=== PATIENT | female | born 1955 | race Caucasian/White ===

== ENCOUNTER 2019-10-30 07:37 | Outpatient (CLI) | payer OTHER, SELFPAY ==
[2019-10-30 08:09] LABS: Blood Urea Nitrogen 11 mg/dL (7-17); Calcium 9.5 mg/dL (8.4-10.2); Carbon Dioxide 28 mmol/L (22-30); Chloride 106 mmol/L (98-107); Cholesterol 179 mg/dL (0-200); Estimated Glomerular Filt Rate > 60; Glucose 108 mg/dL (65-105); HDL Direct 56 mg/dL; Potassium 4.4 mmol/L (3.4-5.0); Sodium 139 mmol/L (137-145); Triglycerides 106 mg/dL (<150)
[2019-10-30 08:20] LABS: LDL Cholesterol Direct 89 mg/dL
[2019-10-30 08:54] LABS: Vitamin D 25 Hydroxy 33.1 ng/mL
== END 2019-10-30 07:38 | disposition home or self-care (01) ==
PROVIDERS: PCP Internal Medicine; Visit Provider Internal Medicine
DX: E55.9 Vitamin D deficiency, unspecified (principal); E66.9 Obesity, unspecified
CPT/HCPCS: 36415; 80048; 80061; 82306

== ENCOUNTER 2020-04-25 12:37 | Outpatient (CLI) | payer OTHER, SELFPAY ==
[2020-04-25 13:31] LABS: Basophils Percent Auto 0.2 % (0.2-1.2); Eosinophils Absolute Auto 0.1 K/mm3 (0-0.3); Eosinophils Percent Auto 0.8 % (0-4.4); Hematocrit 42.2 % (37.0-47.0); Immature Granulocyte Absolute 0.02 K/mm3 (0.00-0.031); Immature Granulocyte Percent A 0.3 % (0-0.5); Lymphocytes Absolute Auto 2.76 K/mm3 (0.9-3.2); Lymphocytes Percent Auto 44.2 % (18.3-44.2); Mean Corpuscular HGB Conc 33.2 g/dl (32-36); Mean Corpuscular Volume 93.6 fl (80-100); Mean Platelet Volume 9.3 fl (7.4-10.4); Monocytes Absolute Auto 0.5 K/mm3 (0.1-0.6); Monocytes Percent Auto 7.4 % (2.6-8.5); Neutrophils Absolute Auto 2.9 K/mm3 (1.3-6.7); Neutrophils Percent Auto 47.1 % (45.5-73.1); Platelet Count Result 275 k/mm3 (150-375); Red Blood Count 4.51 M/mm3 (4.2-5.4); Red Cell Distribution Width 11.9 % (11.5-14.5); White Blood Count 6.2 K/mm3 (4.5-10.0)
[2020-04-25 13:38] LABS: Add Urine Microscopic? YES; Appearance Urine Clear (Clear); Bacteria Urine Trace /hpf; Bilirubin Urine Negative (Negative); Blood Urine Negative (Negative); Color Urine Yellow (Yellow); Glucose Urine UA Negative (Negative); Ketones Urine Negative (Negative); Leukocyte Esterase Ur Trace LEU/UL (NEGATIVE); Mucus Urine Rare /lpf; Nitrate Urine Negative (Negative); Protein Urine Negative (Negative); Specific Grav Ur 1.014 (1.001-1.035); Squamous Epithelial Cell Urine Few /hpf (Few); Urobilinogen Urine Negative mg/dL (<2.0); WBC Urine 0-3 /hpf (0-3)
[2020-04-25 13:41] LABS: Alanine Aminotransferase 22 U/L (4-35); Albumin Level 4.5 g/dL (3.5-5.1); Alkaline Phosphatase 76 U/L (38-126); Anion Gap 7 mmol/L (8-16); Aspartate Amino Transferase 29 U/L (14-36); Bilirubin,Total 0.6 mg/dL (0.2-1.3); Blood Urea Nitrogen 12 mg/dL (7-17); Calcium 10.8 mg/dL (8.4-10.2); Carbon Dioxide 30 mmol/L (22-30); Chloride 102 mmol/L (98-107); Cholesterol 261 mg/dL (0-200); Estimated Glomerular Filt Rate > 60; Glucose 100 mg/dL (65-105); HDL Direct 62 mg/dL; Potassium 4.5 mmol/L (3.4-5.0); Sodium 139 mmol/L (137-145); Triglycerides 252 mg/dL (<150)
[2020-04-25 13:51] LABS: LDL Cholesterol Direct 155 mg/dL
[2020-04-25 14:08] LABS: Hemoglobin A1C 5.2 % (<5.7)
[2020-04-28 12:16] LABS: Homocysteine 9.3 umol/L (<10.4)
== END 2020-04-25 12:38 | disposition home or self-care (01) ==
PROVIDERS: PCP Internal Medicine; Visit Provider Internal Medicine
DX: E55.9 Vitamin D deficiency, unspecified (principal); Z79.899 Other long term (current) drug therapy; G47.33 Obstructive sleep apnea (adult) (pediatric); M15.0 Primary generalized (osteo)arthritis
CPT/HCPCS: 36415; 80053; 80061; 81001; 83036; 83090; 85025

== ENCOUNTER 2020-05-02 08:17 | Outpatient (CLI) | payer OTHER, SELFPAY ==
[2020-05-02 08:56] LABS: Cholesterol 218 mg/dL (0-200); HDL Direct 66 mg/dL; Triglycerides 110 mg/dL (<150)
[2020-05-02 09:06] LABS: Add Urine Microscopic? YES; Amorphous Sediment Urine Few; Appearance Urine Cloudy (Clear); Bacteria Urine 1+ /hpf; Bilirubin Urine Negative (Negative); Blood Urine Negative (Negative); Color Urine Yellow (Yellow); Glucose Urine UA Negative (Negative); Ketones Urine Negative (Negative); Leukocyte Esterase Ur Trace LEU/UL (NEGATIVE); Mucus Urine Rare /lpf; Nitrate Urine Negative (Negative); Protein Urine Negative (Negative); Specific Grav Ur 1.021 (1.001-1.035); Squamous Epithelial Cell Urine Many /hpf (Few); Urobilinogen Urine Negative mg/dL (<2.0); WBC Urine 21-30 /hpf (0-3)
[2020-05-02 09:07] LABS: LDL Cholesterol Direct 123 mg/dL
[2020-05-05 06:08] LABS: Vitamin D 1,25 (OH)2 Total 53 pg/mL (18-72); Vitamin D2 1,25 (OH)2 <8 pg/mL; Vitamin D3 1,25 (OH)2 53 pg/mL
[2020-05-05 13:06] LABS: Ionized Calcium 5.2 mg/dL (4.8-5.6)
== END 2020-05-02 08:18 | disposition home or self-care (01) ==
PROVIDERS: PCP Internal Medicine; Visit Provider Internal Medicine
DX: E83.52 Hypercalcemia (principal); E78.5 Hyperlipidemia, unspecified; R31.9 Hematuria, unspecified
CPT/HCPCS: 36415; 80061; 81001; 82330; 82652; 83519

== ENCOUNTER 2020-10-25 10:58 | Outpatient (CLI) | payer OTHER, SELFPAY ==
--- NOTE | ~2020-10-25 | XR_ITS ---
XR hip RT 2V w AP pelvis 10/25/2020 11:22 Indication: Pelvic and perineal pain Procedure: AP pelvis and 2 views right hip Comparison: No prior studies for comparison. Findings: There is moderate lower lumbar spondylosis. Sacral foramen are symmetric. Pelvic rings are intact. No significant soft tissue abnormality. No foreign body. Impression: 1: No acute bone or joint abnormality. 2: Moderate lower lumbar spondylosis. Reviewed, dictated and finalized at location B. Impression: 1: No acute bone or joint abnormality. 2: Moderate lower lumbar spondylosis.
--- NOTE | ~2020-10-25 | XR_ITS ---
EXAMINATION: XR lumbar spine 2-3V DATE: 10/25/2020 11:22 INDICATION: Pelvic and perineal pain. TECHNIQUE: 3 views of lumbar spine were obtained. COMPARISON: Lumbar spine MRI 05/15/2013 FINDINGS: There is 10 degrees dextroscoliosis of lumbar spine. Vertebral body heights are normal. The re is moderately decreased disc height at L3-L4 and L5-S1 and severely decreased disc height at L4-L5 . There are endplate osteophytes at all levels. There is severe facet joint osteoarthritis in lower l umbar spine. Surgical clips in the right upper quadrant are likely from cholecystectomy. IMPRESSION: 1. Severe lumbar spondylosis. 2. Lumbar dextroscoliosis. Reviewed, dictated and finalized at location A.
== END 2020-10-25 10:59 | disposition home or self-care (01) ==
LOC: ANHIMG 11:02
PROVIDERS: PCP Internal Medicine; Visit Provider Internal Medicine
DX: R10.2 Pelvic and perineal pain (principal); R10.31 Right lower quadrant pain; M47.896 Other spondylosis, lumbar region
CPT/HCPCS: 72100; 73502

== ENCOUNTER 2020-11-08 13:36 | Outpatient (CLI) | payer OTHER, SELFPAY ==
--- NOTE | ~2020-11-08 | US_ITS ---
EXAMINATION: US pelvic complete w TV DATE: 11/08/2020 14:27 INDICATION: Right pelvic pain Comparison:No prior studies for comparison. TECHNIQUE: Multiple transabdominal and endovaginal sonographic images of the pelvis performed. FINDINGS: The uterus measures 4.9 x 2 x 2.8 cm. There are nabothian cysts. The endometrial complex me asures 2 mm. The ovaries are not visualized. No adnexal masses or fluid collections. There is no free fluid in the pelvis. There are no abnormal masses seen on either side. IMPRESSION: 1. Unremarkable pelvic ultrasound. Reviewed, dictated and finalized at location B.
== END 2020-11-08 13:37 | disposition home or self-care (01) ==
PROVIDERS: PCP Internal Medicine; Visit Provider Internal Medicine
DX: R10.2 Pelvic and perineal pain (principal)
CPT/HCPCS: 76830; 76856

== ENCOUNTER 2021-02-07 10:47 | Outpatient (CLI) | payer OTHER, SELFPAY ==
--- NOTE | ~2021-02-07 | XR_ITS ---
EXAMINATION: XR barium swallow modified DATE: 02/07/2021 11:35 INDICATION: Dysphagia, unspecified. TECHNIQUE: The patient was given barium-containing material of multiple consistencies to swallow by t cony speech pathologist while I performed fluoroscopy. Fluoroscopy exposure time was 1.3 minutes. The n umber of fluoroscopy images saved to the PACS was 1. Dose-area product was 1.325 Gy-cm^2. FINDINGS: There was no laryngeal penetration or aspiration. IMPRESSION: 1. No laryngeal penetration or aspiration. 2. Please refer to the speech therapy report for recommendations. Reviewed, dictated and finalized at location A.
--- NOTE | 2021-02-07 11:45 | STOPEVAL ---
MODIFIED BARIUM SWALLOW EVALUATION: Thank you for referring Jasmine Michaud to [facility].? Attending Provider: Hank Francisco MD Outpatient Past Medical History Past Medical History Source of Past Medical History Patient Evaluation Information Problem Diagnosis choking Prior Level of Function Prior Swallow Level Prior Intake Method Oral Prior Diet Regular (Level 7 Diet) Prior Liquid Consistency Thin (Level 0 Diet) Comments Additional Prior Level of Function Pt denies CVA, pneumonia, Comments throat surgery, esophageal dilatation, or GERD Modified Barium Swallow Evaluation Recent Swallowing History Reports Dysphagia Yes: choking a few times a week on anything even saliva Onset of Dysphagia 2020 it starting worsening History of Dysphagia No Other Factors Impacting Dysphagia None History of Pneumonia No Intake Method Prior to Swallow Oral Evaluation Diet Prior to Swallow Evaluation Regular, Level 7 Liquid Consistency Prior to Swallow Thin (0) Evaluation Consistency Solid Consistency Method of Presentation Spoon Oral Preparatory Symptoms None Oral Phase Symptoms None Pharyngeal Phase Symptoms None Severity of Vallecular Residue None - 0% No Residue Severity of Pyriform Sinus Residue None - 0% No Residue 8 Point Laryngeal Penetration-Aspiration Material Does Not Enter Airway Scale Cervical/Esophageal Symptoms None Mixed Consistency Method of Presentation Spoon Oral Preparatory Symptoms None Oral Phase Symptoms None Pharyngeal Phase Symptoms None Severity of Vallecular Residue None - 0% No Residue Severity of Pyriform Sinus Residue None - 0% No Residue 8 Point Laryngeal Penetration-Aspiration Material Does Not Enter Airway Scale Cervical/Esophageal Symptoms None Pureed Consistency Method of Presentation Spoon Oral Preparatory Symptoms None Oral Phase Symptoms None Pharyngeal Phase Symptoms None Severity of Vallecular Residue None - 0% No Residue Severity of Pyriform Sinus Residue None - 0% No Residue 8 Point Laryngeal Penetration-Aspiration Material Does Not Enter Airway Scale Cervical/Esophageal Symptoms None Thin Uncontrolled 2 Method of Presentation Straw Oral Preparatory Symptoms None Oral Phase Symptoms None Pharyngeal Phase Symptoms None Severity of Vallecular Residue None - 0% No Residue Severity of Pyriform Sinus Residue None - 0% No Residue 8 Point Laryngeal Penetration-Aspiration Material Does Not Enter Airway Scale Cervical/Esophageal Symptoms None Thin
== END 2021-02-07 10:48 | disposition home or self-care (01) ==
LOC: ANHIMG 10:50
PROVIDERS: PCP Internal Medicine; Visit Provider Internal Medicine
DX: R13.10 Dysphagia, unspecified (principal)
CPT/HCPCS: 92611

== ENCOUNTER 2021-03-28 18:00 | Outpatient (CLI) | payer OTHER, SELFPAY ==
--- NOTE | ~2021-03-28 | XR_ITS ---
XR chest 2V 03/28/2021 18:21 Indication: Dry cough for 4 months Procedure: 2 view chest Comparison: 09/21/2016 Findings: There are linear left basilar infiltrates, most likely atelectasis/scarring. There are chol ecystectomy clips. There is scoliosis. No significant effusion or pneumothorax. Mild thoracic spondyl osis. No acute osseous abnormality. Impression: 1: Linear left basilar infiltrates, most likely atelectasis/scarring. Reviewed, dictated and finalized at location A. L WAXER Impression: 1: Linear left basilar infiltrates, most likely atelectasis/scarring.
== END 2021-03-28 18:01 | disposition home or self-care (01) ==
LOC: ANHIMG 18:06
PROVIDERS: PCP Internal Medicine; Visit Provider Internal Medicine
DX: R05.9 Cough, unspecified (principal); R91.8 Other nonspecific abnormal finding of lung field
CPT/HCPCS: 71046

== ENCOUNTER → 2021-03-29 08:46 | Outpatient (CLI) | payer OTHER, SELFPAY ==
[2021-03-29 11:12] LABS: Influenza Control Positive
[2021-03-29 18:11] LABS: SARS-CoV-2 RNA PCR Negative
== END ==
PROVIDERS: PCP Internal Medicine; Visit Provider Internal Medicine
DX: R68.89 Other general symptoms and signs (principal); Z20.822 Contact with and (suspected) exposure to COVID-19
CPT/HCPCS: 87804; C9803; U0003; U0005

== ENCOUNTER 2021-04-05 06:55 | Outpatient (CLI) | payer OTHER, SELFPAY ==
--- NOTE | ~2021-04-05 | CT_ITS ---
EXAMINATION: CT diagnostic chest w con EXAM DATE: 04/05/2021 07:27 INDICATION: Shortness of breath. TECHNIQUE: Spiral CT of the chest following intravenous injection of 75 mL Omnipaque 350. Axial, cor onal and sagittal images of the chest were reviewed. Coronal maximum intensity pixel images of chest reviewed. The dose-length product (DLP) for this examination was 337.23 mGy-cm. The exposure was t ailored according to patient size (auto mA exposure control), and iterative reconstruction (ASIR) was used as additional dose reduction technique. There is no prior study for comparison. FINDINGS: There are cholecystectomy clips. Small amount of right lower lobe posterior segmental endo bronchial debris, associated subsegmental atelectasis. The lungs are otherwise clear. There are no pleural or pericardial effusions. Tracheobronchial tree is patent. There is no mediastinal, hilar or axillary lymphadenopathy. There is no pneumothorax. Heart normal in size. There is mild cor onary arterial calcification, arterial sclerosis. Upper abdomen is unremarkable. There is mild tho racic spondylosis without osteoblastic or osteolytic lesions identified. IMPRESSION: Small right lower lobe subsegmental endobronchial debris, atelectasis. Reviewed, dictated and finalized at location B. LIEUTENANT IMPRESSION: Small right lower lobe subsegmental endobronchial debris, atelectas is.
[2021-04-05 07:23] LABS: Estimated Glomerular Filt Rate > 60
== END 2021-04-05 06:56 | disposition home or self-care (01) ==
LOC: ANHIMG 07:02
PROVIDERS: PCP Internal Medicine; Visit Provider Internal Medicine
DX: R05.9 Cough, unspecified (principal); R06.02 Shortness of breath; R91.8 Other nonspecific abnormal finding of lung field
CPT/HCPCS: 71260; Q9967

== ENCOUNTER 2021-04-17 07:58 | Outpatient (CLI) | payer OTHER, SELFPAY ==
--- NOTE | 2021-04-18 08:36 | WPDPFTINT ---
PFT Procedure Performed PFT Procedure Performed Spirometry with Pre/Post Bronchodilator Plethysmography (Lung Vol) Diffusing Cap (DLCO) Flow Vol Loop PFT Interpretation Lung volumes were measured with the body plethysmography method. Lung volumes are unremarkable. Spirometry showed normal expiratory flow rates and a normal FEV1 to FVC ratio of 87%. Following administration of a bronchodilator there was no significant change in the expiratory flow rates. Lung diffusion capacity is borderline normal at 78% predicted. The flow volume loop is unremarkable. Impression: Spirometry, lung volumes, and lung diffusion capacity all within the normal range.
== END 2021-04-17 07:59 | disposition home or self-care (01) ==
PROVIDERS: PCP Internal Medicine; Visit Provider Internal Medicine
DX: R05.9 Cough, unspecified (principal)
CPT/HCPCS: 94060; 94726; 94729

== ENCOUNTER 2021-05-01 07:42 | Outpatient (CLI) | payer OTHER, SELFPAY ==
[2021-05-01 08:09] LABS: Alanine Aminotransferase 16 U/L (4-35); Albumin Level 4.6 g/dL (3.5-5.1); Alkaline Phosphatase 81 U/L (38-126); Anion Gap 10 mmol/L (8-16); Aspartate Amino Transferase 24 U/L (14-36); Bilirubin,Total 0.8 mg/dL (0.2-1.3); Blood Urea Nitrogen 13 mg/dL (7-17); Calcium 9.7 mg/dL (8.4-10.2); Carbon Dioxide 22 mmol/L (22-30); Chloride 105 mmol/L (98-107); Cholesterol 169 mg/dL (0-200); Estimated Glomerular Filt Rate > 60; Glucose 128 mg/dL (65-110); HDL Direct 84 mg/dL; Potassium 3.9 mmol/L (3.4-5.0); Sodium 137 mmol/L (137-145); Triglycerides 110 mg/dL (<150)
[2021-05-01 08:12] LABS: Hemoglobin A1C 5.2 % (<5.7)
[2021-05-01 08:20] LABS: LDL Cholesterol Direct 59 mg/dL
[2021-05-01 08:35] LABS: Free T4 Free Thyroxine 1.18 ng/mL (0.78-2.19); Vitamin D 25 Hydroxy 41.8 ng/mL
== END 2021-05-01 07:43 | disposition home or self-care (01) ==
PROVIDERS: PCP Internal Medicine; Visit Provider Internal Medicine
DX: Z00.00 Encounter for general adult medical examination without abnormal findings (principal); E78.5 Hyperlipidemia, unspecified; R73.01 Impaired fasting glucose; Z79.899 Other long term (current) drug therapy
CPT/HCPCS: 36415; 80053; 80061; 82306; 83036; 84439; 84443

== ENCOUNTER 2021-09-05 13:25 | Outpatient (CLI) | payer OTHER, SELFPAY ==
[2021-09-05 15:28] LABS: Alanine Aminotransferase 17 U/L (4-35); Albumin Level 4.4 g/dL (3.5-5.1); Alkaline Phosphatase 67 U/L (38-126); Anion Gap 8 mmol/L (8-16); Aspartate Amino Transferase 26 U/L (14-36); Bilirubin,Total 0.7 mg/dL (0.2-1.3); Blood Urea Nitrogen 10 mg/dL (7-17); Calcium 9.3 mg/dL (8.4-10.2); Carbon Dioxide 29 mmol/L (22-30); Chloride 104 mmol/L (98-107); Cholesterol 213 mg/dL (0-200); Estimated Glomerular Filt Rate > 60; Glucose 134 mg/dL (65-110); HDL Direct 65 mg/dL; Potassium 3.5 mmol/L (3.4-5.0); Sodium 141 mmol/L (137-145); Triglycerides 156 mg/dL (<150)
[2021-09-05 15:39] LABS: LDL Cholesterol Direct 100 mg/dL
[2021-09-05 17:27] LABS: Hemoglobin A1C 5.2 % (<5.7)
== END 2021-09-05 13:26 | disposition home or self-care (01) ==
LOC: ANHLAB 13:27
PROVIDERS: PCP Internal Medicine; Visit Provider Internal Medicine
DX: E78.2 Mixed hyperlipidemia (principal); Z79.899 Other long term (current) drug therapy; R73.01 Impaired fasting glucose
CPT/HCPCS: 36415; 80053; 80061; 83036

== ENCOUNTER 2021-09-12 16:41 | Outpatient (CLI) | payer OTHER, SELFPAY ==
--- NOTE | ~2021-09-12 | DEXA_ITS ---
Bone Density Report Name: TALON JAIME Age: 66 Sex: Female Ethnicity: White Date of : 1955 Indication: postmenopausal; screening for osteoporosis; height loss; Referring Provider: NOÉ CRESPO Study: Bone densitometry was performed. Exam Date: September 12, 2021 Accession number: [id number] Bone Density: Region BMD T-score Z-score Classification AP Spine(L1-L4) 1.075 0.3 2.0 Normal Femoral Neck (Left) 0.679 -1.5 0.0 Osteopenia Total Hip (Left) 0.809 -1.1 0.1 Osteopenia Femoral Neck (Right) 0.689 -1.4 0.0 Osteopenia Total Hip (Right) 0.779 -1.3 -0.1 Osteopenia Total Hip Mean 0.794 -1.2 0.0 Osteopenia World Health Organization criteria for BMD impression classify patients as: Normal (T-score at or above -1.0), Osteopenia (T-score between -1.0 and -2.5), or Osteoporosis (T-score at or below -2.5). 10-year Fracture Risk(1): Major Osteoporotic Fracture 8.0% Hip Fracture 0.8% Reported Risk Factors: [place] (), Neck BMD=0.679, BMI=37.8 (1) FRAX(R) Version 3.08. Fracture probability calculated for an untreated patient. Fracture probability may be lower if the patient has received treatment. Previous Exams: Region Exam Age BMD T-score BMD Change BMD Change Date g/cm2 vs Baseline vs Previous AP Spine (L1-L4) 09/12/2021 66 1.075 0.3 -0.035 (-3.1%) -0.035 (-3.1%) 06/09/2018 63 1.110 0.6 Total Hip(Left) 09/12/2021 66 0.809 -1.1 -0.057 (-6.6%) -0.057 (-6.6%) 06/09/2018 63 0.866 -0.6 Total Hip(Right) 09/12/2021 66 0.779 -1.3 -0.043 (-5.2%) -0.043 (-5.2%) 06/09/2018 63 0.822 -1.0 *Denotes significance at 95% confidence level, LSC for AP Spine = 0.022 g/cm2, LSC for Total Hip = 0.027 g/cm2 Clinical Information Provided by Patient: Has used the following medications: Vitamin D, Calcium Patient maximum height was 65 Menopause Age: 57 Drinks caffeinated beverages Onset of menses at age 16 Number of children 0 Impression: The patient has low bone mass, based on the Left Femoral Neck T-score. The patient has an estimated ten-year risk of hip fracture of 0.8% and an estimated ten-year risk of major fracture of 8%, based on the WHO FRAX algorithm. The BMD for the AP Spine (L1-L4) decreased, changing by -3.1% since the last DXA exam. The BMD for the Total Hip(Left) decreased, changing by -6.6% since the last DXA exam. The BMD for the Total Hip(Right) decreased, changing by -5.2% since the last
== END 2021-09-12 16:42 | disposition home or self-care (01) ==
LOC: ANHIMG 16:42
PROVIDERS: PCP Internal Medicine; Visit Provider Internal Medicine
DX: Z78.0 Asymptomatic menopausal state (principal); M85.852 Other specified disorders of bone density and structure, left thigh; M85.851 Other specified disorders of bone density and structure, right thigh
CPT/HCPCS: 77080

== ENCOUNTER → 2021-09-19 00:24 | Outpatient (CLI) | payer OTHER, SELFPAY ==
[2021-09-19 13:04] LABS: SARS-CoV-2 RNA PCR Negative
== END ==
PROVIDERS: PCP Internal Medicine; Visit Provider Internal Medicine
DX: R05.9 Cough, unspecified (principal); Z20.822 Contact with and (suspected) exposure to COVID-19
CPT/HCPCS: C9803; U0003; U0005

== ENCOUNTER 2022-01-12 17:24 | Outpatient (CLI) | payer OTHER, SELFPAY ==
[2022-01-12 18:27] LABS: Hemoglobin A1C 5.3 % (<5.7)
[2022-01-12 18:39] LABS: Alanine Aminotransferase 17 U/L (6-35); Albumin Level 4.4 g/dL (3.5-5.1); Alkaline Phosphatase 89 U/L (38-126); Anion Gap 6 mmol/L (8-16); Aspartate Amino Transferase 30 U/L (14-36); Bilirubin,Total 0.4 mg/dL (0.2-1.3); Blood Urea Nitrogen 13 mg/dL (7-17); Calcium 9.2 mg/dL (8.4-10.2); Carbon Dioxide 29 mmol/L (22-30); Chloride 100 mmol/L (98-107); Cholesterol 212 mg/dL (0-200); Estimated Glomerular Filt Rate > 60; Glucose 103 mg/dL (65-110); HDL Direct 68 mg/dL; Sodium 135 mmol/L (137-145); Triglycerides 222 mg/dL (<150)
[2022-01-12 18:50] LABS: LDL Cholesterol Direct 101 mg/dL
[2022-01-12 19:08] LABS: Vitamin D 25 Hydroxy 33.1 ng/mL
== END 2022-01-12 17:25 | disposition home or self-care (01) ==
LOC: ANHLAB 17:25
PROVIDERS: PCP Internal Medicine; Visit Provider Internal Medicine
DX: E78.2 Mixed hyperlipidemia (principal); Z79.899 Other long term (current) drug therapy; R73.01 Impaired fasting glucose; E55.9 Vitamin D deficiency, unspecified
CPT/HCPCS: 36415; 80053; 80061; 82306; 83036

== ENCOUNTER 2022-01-15 11:16 | Outpatient (CLI) | payer OTHER, SELFPAY ==
--- NOTE | ~2022-01-15 | XR_ITS ---
XR_[id number]_CR DATE: 01/15/2022 11:43 INDICATION: Dorsal foot pain TECHNIQUE: 4 weightbearing views COMPARISON: None FINDINGS: Prominent plantar calcaneal enthesopathy without associated erosive change or periostitis. Slight posterior calcaneal enthesopathy. Mild osteoarthritis at the first metatarsophalangeal joint. No fracture or dislocation, periosteal reaction or bone destruction is detected. IMPRESSION: Calcaneal enthesopathy Mild osteoarthritis at first metatarsophalangeal joint Reviewed, dictated and finalized at Location A. Reviewed, dictated and finalized at location B.
== END 2022-01-15 11:17 | disposition home or self-care (01) ==
LOC: ANHIMG 11:18
PROVIDERS: PCP Internal Medicine; Visit Provider Internal Medicine
DX: M77.32 Calcaneal spur, left foot (principal); M19.072 Primary osteoarthritis, left ankle and foot
CPT/HCPCS: 73630

== ENCOUNTER 2023-02-12 14:30 | Outpatient (CLI) | payer MEDICARE, SELFPAY ==
[2023-02-12 15:16] LABS: Basophils Percent Auto 0.4 % (0.2-1.2); Eosinophils Absolute Auto 0.1 K/mm3 (0-0.3); Eosinophils Percent Auto 1.1 % (0-4.4); Hematocrit 41.2 % (37.0-47.0); Hemoglobin 13.6 g/dL (12.0-15.0); Immature Granulocyte Absolute 0.02 K/mm3 (0.00-0.031); Immature Granulocyte Percent A 0.3 % (0-0.5); Lymphocytes Absolute Auto 2.59 K/mm3 (0.9-3.2); Lymphocytes Percent Auto 35.3 % (18.3-44.2); Mean Corpuscular Hemoglobin 30.8 pg (26-34); Mean Corpuscular Volume 93.4 fl (80-100); Mean Platelet Volume 9.7 fl (7.4-10.4); Monocytes Absolute Auto 0.6 K/mm3 (0.1-0.6); Monocytes Percent Auto 7.8 % (2.6-8.5); Neutrophils Percent Auto 55.1 % (45.5-73.1); Platelet Count Result 294 k/mm3 (150-375); Red Blood Count 4.41 M/mm3 (4.2-5.4); Red Cell Distribution Width 12.3 % (11.5-14.5); White Blood Count 7.3 K/mm3 (4.5-10.0)
[2023-02-12 15:26] LABS: Alanine Aminotransferase 20 U/L (6-35); Albumin Level 4.7 g/dL (3.5-5.1); Alkaline Phosphatase 77 U/L (38-126); Anion Gap 8 mmol/L (8-16); Aspartate Amino Transferase 31 U/L (14-36); Bilirubin,Total 0.7 mg/dL (0.2-1.3); Blood Urea Nitrogen 11 mg/dL (7-17); Calcium 10.2 mg/dL (8.4-10.2); Carbon Dioxide 28 mmol/L (22-30); Chloride 99 mmol/L (98-107); Cholesterol 190 mg/dL (0-200); Estimated Glomerular Filt Rate > 60; Glucose 96 mg/dL (65-110); HDL Direct 71 mg/dL; Potassium 4.1 mmol/L (3.4-5.0); Sodium 135 mmol/L (137-145); Triglycerides 159 mg/dL (<150)
[2023-02-12 15:27] LABS: Hemoglobin A1C 5.4 % (<5.7)
[2023-02-12 15:37] LABS: LDL Cholesterol Direct 82 mg/dL
[2023-02-12 16:57] LABS: Free T4 Free Thyroxine 1.29 ng/mL (0.78-2.19); Vitamin D 25 Hydroxy 42.2 ng/mL
== END 2023-02-12 14:31 | disposition home or self-care (01) ==
PROVIDERS: PCP Internal Medicine; Visit Provider Internal Medicine
DX: E55.9 Vitamin D deficiency, unspecified (principal); R73.01 Impaired fasting glucose; Z79.899 Other long term (current) drug therapy; E78.2 Mixed hyperlipidemia
CPT/HCPCS: 36415; 80053; 80061; 82306; 83036; 84439; 84443; 85025

== ENCOUNTER 2023-10-21 14:58 | Outpatient (CLI) | payer MEDICARE, SELFPAY ==
[2023-10-21 19:38] LABS: CRP < 0.5 mg/dL (<1.0); Lactate Dehydrogenase 157 U/L (120-246)
[2023-10-21 20:14] LABS: Erythrocyte Sedimentation Rate 21 mm/hr (0-20)
[2023-10-22 15:08] LABS: Creatinine, Random Urine 43 mg/dL (20-275); Total Protein/Creatinine Ratio NOTE mg/g creat (24-184)
[2023-10-22 16:19] LABS: Protein, Total 7.4 g/dL (6.1-8.1)
[2023-10-23 12:29] LABS: Albumin 4.1 g/dL (3.8-4.8); Alpha 1 Globulin 0.3 g/dL (0.2-0.3); Alpha 2 Globulin 0.7 g/dL (0.5-0.9); Beta 1 Globulin 0.5 g/dL (0.4-0.6); Gamma Globulin 1.3 g/dL (0.8-1.7)
== END 2023-10-21 14:59 | disposition home or self-care (01) ==
LOC: ANHGOSHLAB 15:00
PROVIDERS: PCP Internal Medicine; Visit Provider Internal Medicine
DX: R77.9 Abnormality of plasma protein, unspecified (principal)
CPT/HCPCS: 36415; 82570; 83615; 84155; 84156; 84165; 84166; 85652; 86140

== ENCOUNTER 2024-02-14 07:12 | Outpatient (CLI) | payer MEDICARE, SELFPAY ==
--- NOTE | ~2024-02-14 | DEXA_ITS ---
Bone Density Report Name: TALON JAIME Age: 69 Sex: Female Ethnicity: White Date of : 1955 Indication: osteopenia; monitoring treatment; parental hip fracture; height loss; cancer; asthma or emphysema; Referring Provider: NOÉ CRESPO Study: Bone densitometry was performed. Exam Date: February 14, 2024 Accession number: [id number] Bone Density: Region BMD T-score Z-score Classification AP Spine(L1-L4) 1.087 0.4 2.3 Normal Femoral Neck (Left) 0.684 -1.5 0.1 Osteopenia Total Hip (Left) 0.802 -1.1 0.2 Osteopenia Femoral Neck (Right) 0.692 -1.4 0.2 Osteopenia Total Hip (Right) 0.789 -1.3 0.1 Osteopenia Total Hip Mean 0.795 -1.2 0.2 Osteopenia World Health Organization criteria for BMD impression classify patients as: Normal (T-score at or above -1.0), Osteopenia (T-score between -1.0 and -2.5), or Osteoporosis (T-score at or below -2.5). 10-year Fracture Risk: FRAX not reported because: Treated for osteoporosis Previous Exams: Region Exam Age BMD T-score BMD Change BMD Change Date g/cm2 vs Baseline vs Previous AP Spine (L1-L4) 02/14/2024 69 1.087 0.4 -0.022 (-2.0%) 0.012 (1.1%) 09/12/2021 66 1.075 0.3 -0.035 (-3.1%) -0.035 (-3.1%) 06/09/2018 63 1.110 0.6 Total Hip(Left) 02/14/2024 69 0.802 -1.1 -0.064 (-7.4%) -0.007 (-0.8%) 09/12/2021 66 0.809 -1.1 -0.057 (-6.6%) -0.057 (-6.6%) 06/09/2018 63 0.866 -0.6 Total Hip(Right) 02/14/2024 69 0.789 -1.3 -0.033 (-4.0%) 0.010 (1.3%) 09/12/2021 66 0.779 -1.3 -0.043 (-5.2%) -0.043 (-5.2%) 06/09/2018 63 0.822 -1.0 *Denotes significance at 95% confidence level, LSC for AP Spine = 0.022 g/cm2, LSC for Total Hip = 0.027 g/cm2 Clinical Information Provided by Patient: Parent has had a hip fracture Is being treated for osteoporosis Has used the following medications: Fosamax (i.e. alendronate), Vitamin D, Calcium Has the following medical conditions: Asthma or Emphysema, Cancer Patient maximum height was 65.5 Menopause Age: 57 Drinks caffeinated beverages Onset of menses at age 15 Number of children 0 Impression: The patient has low bone mass, based on the Left Femoral Neck T-score. The patient has risk factors, including: parental hip fracture. No significant bone loss was observed. Discussion: PATIENT UNDER TREATMENT WITH NO SIGNIFICANT BMD LOSS SINCE LAST EXAM. In an untreated patient, BMD typically declines with age. A lack
== END 2024-02-14 07:13 | disposition home or self-care (01) ==
LOC: ANHIMG 07:13
PROVIDERS: PCP Internal Medicine; Visit Provider Internal Medicine
DX: M85.89 Other specified disorders of bone density and structure, multiple sites (principal); Z78.0 Asymptomatic menopausal state
CPT/HCPCS: 77080

== ENCOUNTER 2024-02-22 11:37 | Outpatient (CLI) | payer MEDICARE, SELFPAY ==
[2024-02-22 12:05] LABS: Hemoglobin A1C 5.3 % (<5.7)
[2024-02-22 12:05] LABS: Add Urine Microscopic? YES; Appearance Urine Clear (Clear); Bacteria Urine 1+ /hpf; Bilirubin Urine Negative (Negative); Blood Urine Negative (Negative); Color Urine Yellow (Yellow); Glucose Urine UA Negative (Negative); Ketones Urine Trace mg/dL (Negative); Leukocyte Esterase Ur 2+ LEU/UL (Negative); Nitrate Urine Negative (Negative); Non Pathogenic Casts 0-2; Protein Urine Trace mg/dL (Negative); RBC Urine 0-2 /hpf (0-2); Specific Grav Ur 1.022 (1.001-1.035); Squamous Epithelial Cell Urine Few /hpf (Few); pH Urine 5.5 (5.0-9.0)
[2024-02-22 12:06] LABS: Alanine Aminotransferase 14 U/L (6-35); Albumin Level 4.6 g/dL (3.5-5.1); Alkaline Phosphatase 73 U/L (38-126); Anion Gap 9 mmol/L (4-12); Aspartate Amino Transferase 26 U/L (14-36); Bilirubin,Total 0.8 mg/dL (0.2-1.3); Blood Urea Nitrogen 9 mg/dL (7-17); Calcium 9.6 mg/dL (8.4-10.2); Carbon Dioxide 25 mmol/L (22-30); Chloride 105 mmol/L (98-107); Cholesterol 158 mg/dL (0-200); Estimated Glomerular Filt Rate > 60; Glucose 101 mg/dL (65-110); HDL Direct 73 mg/dL; Potassium 4.2 mmol/L (3.4-5.0); Sodium 139 mmol/L (137-145); Triglycerides 104 mg/dL (<150)
[2024-02-22 12:17] LABS: LDL Cholesterol Direct 57 mg/dL
[2024-02-22 12:37] LABS: Free T4 Free Thyroxine 1.44 ng/mL (0.78-2.19); Vitamin D 25 Hydroxy 38.6 ng/mL
== END 2024-02-22 11:38 | disposition home or self-care (01) ==
PROVIDERS: PCP Internal Medicine; Visit Provider Internal Medicine
DX: R73.01 Impaired fasting glucose (principal); E78.2 Mixed hyperlipidemia; E55.9 Vitamin D deficiency, unspecified; R53.83 Other fatigue; Z79.899 Other long term (current) drug therapy
CPT/HCPCS: 36415; 80053; 80061; 81001; 82306; 83036; 84439; 84443; 87086

== ENCOUNTER 2024-08-13 16:29 | Outpatient (CLI) | payer MEDICARE, SELFPAY ==
--- OUTSIDE RECORDS SUMMARY | 2024-08-13 16:35 | XMS_ITS | Encounter Summary ---
Author Organization [facility] Address [address] [place] [address] Phone Care Team Providers Care Hand Etcher Name Role Phone Hank Francisco MD Primary Care Provider [phone] Marcus Galan MD Primary Care Provider [phone] Hank Francisco MD Primary Care Provider [phone] Hank Francisco MD Primary Care Provider [phone] Hank Francisco MD Unavailable [phone] Encounter Details Date Type Department Care Team (Late st Contact Info) Description 12/03/2016 Orders Only [facility] [address] [address] Reji Garcia MD [address] [address] Social History Tobacco Use Types Packs/Day Years Used Date Smoking Tobacco: Never Alcohol Use Standard Drinks/Week Comments Yes 0 (1 standard drink = 0.6 oz pur e alcohol) Comments Unknown Sex and Gender Information Value Date Recorded Sex Assigned at Not on file Legal Sex Female 6:43 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 Gender Identity Female 07/02/2019 3:53 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 Sexual Orientation Not on file documented as of this encounter Plan of Treatment Not on file documented as of this encounter Procedures Procedure Name Priority Date/Time Associated Diagnosis Comments SCREENING MAMMOGRAM 2D BILATERAL Schedule Routine, Read Routine (OP Routine) 12/03/2016 documented in this encounter Results * SCREENING MAMMOGRAM 2D BILATERAL (12/03/2016) Anatomical Region Laterality Modality Breast Bilateral Mammography Reji Garcia MD IMG MAMMO PROCEDURES Edited Resu lt - Final documented in this encounter Visit Diagnoses Not on filedocumented in this encounter Care Teams Hand Etcher Relationship Specialty Start Date End Date Hank Francisco MD [address] [facility] [address] [place] [address] PCP - General 04/01/15 12/03/16 Marcus Galan MD [address] [facility] [address] [place] [address] PCP - General 12/04/16 08/13/17 Hank Francisco MD [address] [facility] [address] [place] [address] PCP - General 08/14/17 03/02/19 Hank Francisco MD [address] [facility] [address] [place] [address] PCP - General 03/03/19 Hank Francisco MD [address] [facility] [address] [place] [address] 03/03/19 documented as of this encounter
--- OUTSIDE RECORDS SUMMARY | 2024-08-13 16:35 | XMS_ITS | Referral Summary ---
Author Organization [facility] Address [address] [place] [address] Care Team Providers Care De Icer Installer Name Role Phone Hank Francisco MD Primary Care Provider [phone] Hank Francisco MD Unavailable [phone] Allergies Active Allergy Reactions Criticality Noted Date Comments Bacitracin Rash Medium Reaction: Rash, , Reaction: Rash, Neomycin Rash Medium Reaction: Rash, Other Rash Medium 05/22/2013 Polymyxin B Rash Medium Reaction: Rash, Medications cholecalciferol (VITAMIN D3) 2,000 unit tablet 0 0 5 Active multivitamin tablet tablet take 1 tablet by oral route every day with food 0 0 5 Active metoprolol XL (TOPROL-XL) 25 mg 24 hr tablet take 1 tablet by oral route every day 0 0 7 Active ALPRAZolam (XANAX) 0.25 mg tablet take 1 tablet (0.25MG) by oral route 2 times every day 0 2 Active calcium-vits J0-Q-Q2-mineral s 166.75 mg- 166.75 unit capsule Take by mouth Active vit D-ulxkfvw-vily- rutin-hb196 890-83-38-40 mg tablet Take by mouth Active fish oil-dha-epa 1,200-144-216 mg capsule Take by mouth Activ e ascorbic acid (VITAMIN C) 100 mg tablet Take 1 tablet (100 mg total) by mouth daily Active vitamins A,C,E-zinc-dillan er (ICAPS) 14,320-226-200 bgns-yj-uxht capsule Take by mouth Active biotin 1 mg capsule Take by mouth Active coenzyme Q10 10 mg capsule Take 1 capsule (10 mg total) by mouth daily Active meclizine (ANTIVERT) 25 mg tablet 0 Active alendronate (FOSAMAX) 70 mg tablet 2 Active estrogens, conjugated, (PREMARIN) vaginal cream Apply pea sized amount to vaginal opening every other night 30 g 3 2 Active triamterene-hyd roCHLOROthiazid e (Dyazide) 37.5-25 mg per tablet/capsule Take 1 tablet/capsule by mouth every other day 90 tablet/capsu le 3 2 Active Breo Ellipta 100-25 mcg/dose diskus inhaler 3 Active rosuvastatin (CRESTOR) 20 mg tablet 3 Active meloxicam (MOBIC) 15 mg tablet 4 Active Paxlovid tablets,dose pack tablets in a dose pack TK 2 NIRMATRELVIR TS AND 1 RITONAVIR T TOGETHER PO BID FOR 5 DAYS 4 Active estradioL (ESTRACE) 0.01 % (0.1 mg/gram) vaginal cream Use .5g at vaginal opening every other night 42.5 g 1 4 Active Active Problems Problem Noted Date Diagnosed Date Meniere's disease 05/25/2020 Leg edema, right 02/17/2019 Assessment & Plan (02/17/2019 10:37 AM CDT): Patient has mild intermittent edema of the right lower extremity with early symptoms such as pain and heaviness. Have recommended conservative measures which include compression, exercise and leg elevation. Will evaluate for with a venous reflux study follow-up 2 weeks. Spider vein of right lower extremity 02/17/2019 Assessment & Plan (03/12/2019 6:16 PM CDT): Patient has no significant superficial venous insufficiency with small cluster of spider veins right posterior thigh. She does not wish to pursue any further treatment at this time and laser based venous ablation not indicated. Continue compression follow-up p.r.n.. Assessment & Plan (02/17/2019 10:38 AM CDT): Patient has painful cluster of spider veins right posterior thigh. Will evaluate for underlying venous insufficiency and reflux. Continue compression therapy may be a good candidate for sclerotherapy ultimately. High blood pressure 06/02/2018 Osteoarthritis 06/02/2018 Anxiety disorder 06/02/2018 Asymmetric SNHL (sensorineural hearing loss) Immunizations Immunization Administration Dates Next Due Influenza, Quadrivalent, [place] l Culture-based MDCK, Preservative Free, Antibiotic Free, Intramuscular 01/23/2019 Influenza, Trivalent, IM (MDV) 04/01/2015,2013 Influenza, Unspecified 02/23/2013 Pneumococcal Polysaccharide PPV23 04/09/2014 Tdap 02/24/2018 ZOSTER LIVE 02/24/2018 ZOSTER Recombinant 01/30/2019,02/24/2018 Social History Tobacco Use Types Packs/Day Years Used Date Smoking Tobacco: Never Smokeless Tobacco: Never Tobacco Cessation:Counseling Given: Not Answered Alcohol Use Standard Drinks/Week Comments Yes 0 (1 standard drink = 0.6 oz pur e alcohol) Personal Safety Answer Date Recorded Getting School Help Needed Not on file 04/30 Comments No Sex and Gender Information Value Date Recorded Sex Assigned at Not on file Legal Sex Female 6:43 PM EATING DISORDER PSYCHOLOGIST Gender Identity Female 07/02/2019 3:53 PM EATING DISORDER PSYCHOLOGIST Sexual Orientation Not on file Last Filed Vital Signs Vital Sign Reading Time Taken Comments Blood Pressure 122/80 12/04/2023 10:47 AM CDT Pulse 62 03/04/2019 8:20 AM CDT Temperature 36.3 C (97.3 F) 03/04/2019 8:20 AM CDT Respiratory Rate - - Oxygen Saturation - - Inhaled Oxygen Concentration - - Weight 89.8 kg (198 lb) 03/10/2024 6:29 PM CDT Height 165.1 cm (5' 5 ) 03/10/2024 6:29 PM CDT Body Mass Index 32.95 03/10/2024 6:29 PM CDT Plan of Treatment Not on file Procedures Procedure Name Priority Date/Time Associated Diagnosis Comments DIAGNOSTIC MAMMOGRAM BILATERAL W ESTEVAN Schedule Routine, Read Routine (OP Routine) 02/03/2024 9:15 AM CDT Breast pain, left HIGH RISK HPV DNA DETECTION WITH GENOTYPING Routine 12/04/2023 7:35 PM CDT Symptomatic menopausal or female climacteric states from Last 3 Months or Most Recently Relevant to Health Maintenance Results * Diagnostic Mammogram Bilateral W Estevan (02/03/2024 9:15 AM CDT) Anatomical Region Laterality Modality Breast Bilateral Mammography 02/03/2024 10:4 4 AM CDT Impressions 02/03/2024 10:44 AM CDT 1. No mammographic or sonographic finding of malignancy in the left breast. Recommend clinical follow-up as needed for the palpable area of concern. Consideration could be given to evaluation with contrast-enhanced breast MRI and/or consultation with a breast surgeon. 2. No mammographic finding of malignancy in the right breast. Overall final assessment: BI-RADS Category 2: Benign RECOMMENDATION: Annual screening mammography in 1 year is recommended. Findings and recommendations were communicated to the patient. *The patient's information was entered into a reminder system with a target due date for the next mammogram. Electronically signed by: AMBER MEJÍA M.D. Narrative 02/03/2024 10:44 AM CDT EXAM: DIAGNOSTIC MAMMOGRAM BILATERAL W ESTEVAN, US BREAST LEFT LIMITED CLINICAL INDICATION: The patient presented for bilateral diagnostic mammography. She has a palpable area of concern in the left breast. TECHNIQUE: Bilateral full-field digital diagnostic mammography with computer aided detection. 3D tomosynthesis images were performed. Limited/targeted sonography of the left breast performed. COMPARISON: Comparison is made with the prior available relevant studies at the time of interpretation. FINDINGS: There are scattered areas of fibroglandular density. A metallic BB denotes the palpable area of concern in the upper outer left breast with no corresponding mammographic abnormality. There are no suspicious calcifications, masses, or areas of architectural distortion. Left breast ultrasound: No suspicious solid or cystic mass identified at the palpable area of concern at 12:00 10 cm from the nipple. Mary Anne Soria MD IMG MAMMO PROCEDURES Final Result * High Risk HPV DNA Detection with Genotyping (Molecular component) (12/04/2023 7:35 PM CDT) HPV HR 16 Not Detected Not Detected HPV HR 18 Not Detected Not Detected [facility] HPV HR Non 16/18 Not Detected Not Detected [facility] Comment: Interpretive Data Nucleic acid amplification for detection of high-risk Human Papilloma virus (HPV) is performed by the Monica Vick 4800 HPV test, which specifically detects high-risk HPV-16, 18, 31, 33, 35, 39, 45, 51, 52, 56, 58, 59, 66, and 68 genotypes. This assay has been approved by the [place] Food and Drug Administration for detection of HPV in cervical specimens collected by a physician using an endocervical brush/spatula or cervical broom and placed in the ThinPrep Pap Test PreservCyt collection containers. The performance characteristics of this test have been verified by the [facility]. Correlate with separately reported cytology results, as applicable. Interpretive data last revised 22 Endocervical 12/04/2023 7:35 PM CDT 12/04/2023 7:35 PM CDT Narrative [facility] - 12/06/2023 9:53 PM CDT Clinical history and diagnosis->routine Number of vials->1 Testing type->Screening Last menstrual period (date if known)->years Menstrual status->Postmenopausal Mary Anne Soria MD LAB BODY FLUIDS AND STOOLS ORDERABLES Final Result [facility] [address] Department [place] [address] from Last 3 Months or Most Recently Relevant to Health Maintenance Insurance [facility] AETNA MEDICARE [facility] MED[facility] Care Teams De Icer Installer Relationship Specialty Start Date End Date Hank Francisco MD [address] [place] [address] PCP - General 03/03/19 Hank Francisco MD [address] [place] [address] 03/03/19
--- OUTSIDE RECORDS SUMMARY | 2024-08-13 16:35 | XMS_ITS | CONTINUITY OF CARE DOCUMENT ---
Author Name james juliashannon Address Unknown Organization [facility] Address [address] [place] [address] Phone [phone] Care Team Providers Care Manager Truck Name Role Phone Светлана Hutchins MD Unavailable SHERYL BLANK MD Unavailable SHERYL BLANK MD Unavailable [phone] RESULTS Date Observation Value Provider Reference Range Interpretation Location 2 platelet count 283 10*3/mm3 Kal Soares 2 hematocrit, blood 40.7 % Kal Soares 2 creatinine, serum 0.61 mg/dL Kal Soares 2 potassium, serum 4.3 mmol/L Kal Soares 2 sodium, serum 138 mmol/L Kal Soares HISTORY OF MEDICATION USE Medication Status Instructions Dates Provider Indications Com ments TOPROL XL 50 MG ORAL TABLET EXTENDED RELEASE 24 HOUR active one tablet daily Rosa Maria Aburto INSURANCE PROVIDERS Payer name Policy type / Coverage type Formerly [facility] party ID [facility] [id number] Other [id number]
--- OUTSIDE RECORDS SUMMARY | 2024-08-13 16:35 | XMS_ITS | Clinical Summary ---
Author Organization [facility] Address [address] [place] [address] Care Team Providers Care Hides Soaker Name Role Phone Hank Francisco MD Primary Care Provider + Allergies Active Allergy Reactions Criticality Noted Date Comments Bacitracin-Polymyxin B Rash Low 11/17/2014 Medications metoprolol succinate (TOPROL XL) 100 mg Extended Release 24 hour tablet Take 100 mg by mouth daily. Active ALPRAZolam (XANAX) 0.25 mg tablet Take 0.25 mg by mouth nightly as needed for Anxiety. Active meloxicam (MOBIC) 7.5 mg tablet Take 7.5 mg by mouth daily. Active Encounters Date Type Department Care Team Description 08/05/2024 External Device Data [facility] ABSTRACTION Provider, Abstract 07/25/2024 External Device Data [facility] AB[facility]CTION Provider, Abstract 07/24/2024 External Device Data [facility] AB[facility]CTION Provider, Abstract 07/21/2024 External Device Data [facility]CTION Provider, Abstract 07/08/2024 External Device Data [facility] AB[facility]CTION Provider, Abstract 07/07/2024 External Device Data [facility] AB[facility]CTION Provider, Abstract 06/09/2024 External Device Data [facility] ABSTRACTION Provider, Abstract 06/02/2024 External Device Data [facility] ABSTRACTION Provider, Abstract from Last 3 Months Family History Medical History Relation Name Comments Cancer Brother prostate Colon Cancer Father Breast Cancer Maternal Grandmother Relation Name Status Comments Brother Father Maternal Grandmother Social History Tobacco Use Types Packs/Day Years Used Date Smoking Tobacco: Never Smokeless Tobacco: Never Alcohol Use Standard Drinks/Week Comments Yes 2 (1 standard drink = 0.6 oz pur e alcohol) Comments Unknown Sex and Gender Information Value Date Recorded Sex Assigned at Female 01/07/2024 4:34 PM CDT Legal Sex Female 4:15 PM CDT Gender Identity Female 01/07/2024 4:34 PM CDT Sexual Orientation Not on file Last Filed Vital Signs Vital Sign Reading Time Taken Comments Blood Pressure 109/65 11/26/2019 9:19 AM CDT Pulse 54 11/26/2019 9:19 AM CDT Temperature 36.4 C (97.5 F) 11/26/2019 9:22 AM CDT Respiratory Rate 16 11/26/2019 9:19 AM CDT Oxygen Saturation 99% 11/26/2019 9:19 AM CDT Inhaled Oxygen Concentration - - Weight 92.1 kg (203 lb) 11/26/2019 8:12 AM CDT Height 165.1 cm (5' 5 ) 11/26/2019 8:12 AM CDT Body Mass Index 33.78 11/26/2019 8:12 AM CDT Plan of Treatment Health Maintenance Due Date Last Done Comments Pre-Diabetes and Diabetes Screening 1955 FIT-DNA Q 3 years 2002 FIT/FOBT Q 1 year 2002 Flex Sig/CT Colonography Q 5 years 2002 PNEUMOCOCCAL VACCINE 50+ YEA RS (2 of 2 - PCV) 04/09/2015 04/09/2014 OSTEOPOROSIS SCREENING 2022 INFLUENZA VACCINE (#1) 2023 9, 04/01/2015, 03/12/2014 BREAST CANCER SCREENING 02/05/2024 02/05/20 23, 02/04/2023, 01/31/2022, Additional history exists COLORECTAL SCREENING 11/25/2026 11/26/2019, 11/26/2019, 11/26/2019, Additional history exists Colorectal Cancer Screening 11/25/2026 DTAP/TDAP/TD VACCINES (2 - T d or Tdap) 02/25/2028 02/24/2018 RSV VACCINE (60+ or ) (1 - 1-dose 75+ series) 02/15/2032 ZOSTER VACCINE Completed 01/30/2019, 12/2017, 02/24/2018 Procedures Procedure Name Priority Date/Time Associated Diagnosis Comments COLONOSCOPY REPORT 11/26/2019 9: 10 AM CDT from Last 3 Months or Most Recently Relevant to Health Maintenance Results * COLONOSCOPY REPORT (11/26/2019 9:10 AM CDT) Narrative Procedure Note Saleem Gonzales MD - 11/26/2019 9:09 AM CDT [facility] Patient Name: Jasmine Holloway Procedure Date: 11/26/2019 Date of : 1955 Admit Type: Outpatient Age: 64 Attending MD: Saleem Gonzales MD Procedure: Colonoscopy Indications: Colorectal cancer screening, high risk family history. Father had colon cancer. Brother had polyps. Last colonoscopy in 11/2014 without neoplasia. Providers: Saleem Gonzales MD Referring MD: Hank Francisco MD Medicines: TIVA Procedure: Informed consent was obtained for the procedure, including moderate sedation after risks were discussed. Based on the pre-procedure assessment, including review of the patient's medical history, medications, allergies, and review of systems, the patient was deemed to be an appropriate candidate for sedation. A timeout was performed. Continuous ECG monitoring, pulse oximetry, blood pressure monitoring, and direct observation were performed. The Colonoscope was introduced through the anus and advanced to the cecum, identified by appendiceal orifice and ileocecal valve. The colonoscopy was performed without difficulty. The patient tolerated the procedure well. The quality of the bowel preparation was excellent. Estimated Blood Loss: Estimated blood loss: none. Findings: Internal hemorrhoids were seen on retroflexion. A few diverticuli were seen in the sigmoid colon. Remainder appeared normal to the cecum. No evidence for polyp, colon cancer or inflammatory bowel disease. Cecum and ileocecal valve well visualized and appeared normal. Complications: No immediate complications. Impression: 1. Internal hemorrhoids 2. Minimal sigmoid diverticulosis. 3. Otherwise normal colonoscopy. No polyp or colon cancer. Recommendation: Reassurance. High fiber diet. Repeat colonoscopy in 7 years per updated guidelines for colon cancer screening due to high risk family history. Follow up with Dr. Francisco for medical issues. Saleem Gonzales MD 11/26/2019 9:08:54 AM This report has been signed electronically. Number of Addenda: 0 Procedure Date: 11/26/2019 8:29:18 AM [address] [address] Saleem Gonzales MD GI PROCEDURE ORDERABLES Final Re sult from Last 3 Months or Most Recently Relevant to Health Maintenance Insurance [employer] [facility] Address: [facility] [address] [place] [address] Advance Directives For more information, please contact: [phone] * Full Code (Latest Code Status on File) Date Activated Date Inactivated Comments 11/26/2019 8:13 AM 11/26/2019 11:59 AM * Full Code Date Activated Date Inactivated Comments 11/18/2014 7:43 AM 11/18/2014 11:17 AM Care Teams Hides Soaker Relationship Specialty Start Date End Date Hank Francisco MD PCP - General Internal Medicine 11/01/14
--- OUTSIDE RECORDS SUMMARY | 2024-08-13 16:35 | XMS_ITS | Clinical Summary ---
Author Organization [facility] Address [address] [place] [address] Care Team Providers Care Java Spring Developer Name Role Phone Hank Francisco MD Primary Care Provider [phone] Hank Francisco MD Unavailable Allergies Active Allergy Reactions Criticality Noted Date [...] times every day 0 2 Active calcium-vits U6-I-A9-mineral s 166.75 mg- 166.75 unit capsule Take by mouth Active vit Q-tcovewu-hnum- rutin-hb196 205-32-54-40 mg tablet Take by mouth Active fish oil-dha-epa 1,200-144-216 mg capsule Take by mouth Activ e ascorbic acid (VITAMIN C) 100 mg tablet Take 1 tablet (100 mg total) by mouth daily Active vitamins A,C,E-zinc-dillan er (ICAPS) 14,320-226-200 yrug-cq-exyh capsule Take by mouth Active biotin 1 [...] 02/24/2018 ZOSTER LIVE 02/24/2018 ZOSTER Recombinant 01/30/2019,02/24/2018 Surgical History Surgery Date Site/Laterality Comments RHINOPLASTY 05/20/1981 - 05/19/1982 APPENDECTOMY 05/20/1984 - 05/19/1985 CHOLECYSTECTOMY 05/20/1995 - 05/19/1996 LAPAROSCOPY 05/20/1989 - 05/19/1990 ETOPIC Medical History Medical History Date Comments Allergic rhinitis Anxiety HL (hearing loss) Family History Medical History Relation Name Comments Colon cancer Father Cancer, colon; Heart disease Father Heart disease; Breast cancer Maternal Grandmother Cancer , breast; Breast cancer Mother Osteoporosis Mother Osteoporosis; Diabetes Sister Diabetes mellit us; Relation Name Status Comments Father Maternal Grandmother Mother Sister Social History Tobacco Use Types Packs/Day Years [...] on file Legal Sex Female 6:43 PM OFFICE HELPER Gender Identity Female 07/02/2019 3:53 PM OFFICE HELPER Sexual Orientation Not on file Obstetrics History Last Filed Vital Signs Vital Sign Reading [...] 03/10/2024 6:29 PM CDT Plan of Treatment Health Maintenance Due Date Last Done Comments Colon Cancer Screening-Colonoscopy 1955 Depression Screening 1955 Fall Risk Assessment 1955 Hepatitis C Screening 1955 Osteoporosis Screening-Bone Density Scan 1955 Hepatitis B Screening 1975 Pneumococcal vaccine 65+ (2 of 2 - PCV) 04/09/2015 04/09/2014 Well Visit 65+ 11/23/2023 11/22/2022, 10/20, 06/06/2020, Additional history exists Covid-19 Vaccine (2023-2 5 season) 2024 03/19/2022, 09/02/2021, 02/16/2021, Additional history exists Breast Cancer Screening-Mammogram 02/02/2025 02/03/2024, 02/04/2023, 01/31/2022, Additional history exists DTaP/Tdap/Td Vaccine (2 - Td or Tdap) 02/25/2028 02/24/2018 Zoster Vaccine Completed 01/10/2022, 01/18, 02/24/2018, Additional history exists Cervical Cancer Screening Discontinued 2023, 12/04/2023, 11/22/2022, Additional history exists Influenza Vaccine Completed 01/25/2024, , 03/19/2022, Additional history exists Procedures Procedure Name Priority Date/Time Associated Diagnosis [...] HPV HR [address] [facility] HPV HR Non 16/18 [address] Not Detect[address] [facility] Comment: Interpretive Data Nucleic acid amplification for [...] this test have been verified by the [facility]. Correlate with separately reported cytology results, as applicable. Interpretive data last revised 22 Endocervical 12/04/2023 7:35 PM CDT 12/04/2023 7:35 PM CDT Narrative [facility] - 12/06/2023 9:53 PM CDT Clinical history and diagnosis->routine Number of vials->1 Testing type->Screening Last menstrual period (date if known)->years Menstrual status->Postmenopausal Mary Anne Soria MD LAB BODY FLUIDS AND STOOLS ORDERABLES Final Result Performing Organization Address City/State/[facility] Co de Phone Number [facility] [address] Department [place] [address] from Last 3 Months or Most Recently Relevant to Health Maintenance Insurance [employer] [facility] MEDICARE [facility] MEDICARE [facility] MEDICARE Care Teams Java Spring Developer Relationship Specialty Start Date End Date Hank Francisco MD [address] [place] [address] PCP - General 03/03/19 Hank Francisco MD [address] [place] [address] 03/03/19
[2024-08-13 17:03] LABS: Basophils Percent Auto 0.5 % (0.2-1.2); Eosinophils Percent Auto 0.6 % (0-4.4); Hemoglobin 12.9 g/dL (12.0-15.0); Immature Granulocyte Absolute 0.01 K/mm3 (0.00-0.031); Immature Granulocyte Percent A 0.2 % (0-0.5); Lymphocytes Absolute Auto 2.53 K/mm3 (0.9-3.2); Mean Corpuscular HGB Conc 33.1 g/dl (32-36); Mean Corpuscular Hemoglobin 30.6 pg (26-34); Mean Corpuscular Volume 92.6 fl (80-100); Mean Platelet Volume 9.7 fl (7.4-10.4); Monocytes Absolute Auto 0.5 K/mm3 (0.1-0.6); Monocytes Percent Auto 7.7 % (2.6-8.5); Neutrophils Absolute Auto 3.5 K/mm3 (1.3-6.7); Platelet Count Result 236 k/mm3 (150-375); Red Blood Count 4.21 M/mm3 (4.2-5.4); Red Cell Distribution Width 12.6 % (11.5-14.5); White Blood Count 6.7 K/mm3 (4.5-10.0)
[2024-08-13 17:14] LABS: Alanine Aminotransferase 19 U/L (6-35); Albumin Level 4.5 g/dL (3.5-5.1); Alkaline Phosphatase 65 U/L (38-126); Anion Gap 11 mmol/L (4-12); Aspartate Amino Transferase 28 U/L (14-36); Bilirubin,Total 0.8 mg/dL (0.2-1.3); Blood Urea Nitrogen 9 mg/dL (7-17); Calcium 9.4 mg/dL (8.4-10.2); Carbon Dioxide 27 mmol/L (22-30); Chloride 100 mmol/L (98-107); Cholesterol 140 mg/dL (0-200); Estimated Glomerular Filt Rate > 60; Glucose 93 mg/dL (65-110); HDL Direct 81 mg/dL; Potassium 3.8 mmol/L (3.4-5.0); Sodium 138 mmol/L (137-145); Triglycerides 85 mg/dL (<150)
[2024-08-13 17:15] LABS: Hemoglobin A1C 5.1 % (<5.7)
[2024-08-13 17:25] LABS: LDL Cholesterol Direct 35 mg/dL
== END 2024-08-13 16:30 | disposition home or self-care (01) ==
LOC: ANHLAB 16:33
PROVIDERS: PCP Internal Medicine; Visit Provider Internal Medicine
DX: R73.01 Impaired fasting glucose (principal); E78.5 Hyperlipidemia, unspecified; Z79.899 Other long term (current) drug therapy; Z00.01 Encounter for general adult medical examination with abnormal findings; E78.2 Mixed hyperlipidemia; E55.9 Vitamin D deficiency, unspecified; R53.83 Other fatigue
CPT/HCPCS: 36415; 80053; 80061; 83036; 85025

== ENCOUNTER 2024-12-23 08:19 | Outpatient (CLI) | payer MEDICARE, SELFPAY ==
--- OUTSIDE RECORDS SUMMARY | 2024-12-23 08:24 | XMS_ITS | Encounter Summary ---
Author Organization [facility] Address [address] [place] [address] Phone Care Team Providers Care Feed Miller Name Role Phone Hank Francisco MD Primary Care Provider [phone] Marcus Galan MD Primary Care Provider [phone] Hank Francisco MD Primary Care Provider [phone] Hank Francisco MD Primary Care Provider [phone] Hank Francisco MD Unavailable [phone] Encounter Details Date Type Department Care Team (Late st Contact Info) Description 12/03/2016 Orders Only [facility] [address] [address] Reji Garcia MD [address] [address] Social History Tobacco Use Types Packs/Day Years Used Date Smoking Tobacco: Never Alcohol Use Standard Drinks/Week Comments Yes 0 (1 standard drink = 0.6 oz pur e alcohol) Comments Unknown Sex and Gender Information Value Date Recorded Sex Assigned at Not on file Legal Sex Female 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 Gender Identity Female 07/02/2019 3:53 PM WHITE SUGAR PAN TANK OPERATOR Sexual Orientation Not on file documented as [...] on filedocumented in this encounter Care Teams Feed Miller Relationship Specialty Start Date End Date Hank Francisco MD [address] [place] [address] PCP - General 04/01/15 12/03/16 Marcus Galan MD [address] [place] [address] PCP - General 12/04/16 08/13/17 Hank Francisco MD [address] [place] [address] PCP - General 08/14/17 03/02/19 Hank Francisco MD [address] [place] [address] PCP - General 03/03/19 Hank Francisco MD [address] [place] [address] 03/03/19 documented as of this encounter
--- OUTSIDE RECORDS SUMMARY | 2024-12-23 08:24 | XMS_ITS | Clinical Summary ---
Author Organization [facility] Address [address] [place] [address] Care Team Providers Care Contact Lens Blocker Name Role Phone Hank Francisco MD Primary Care Provider [phone] Hank Francisco MD Unavailable [phone] Allergies Active Allergy Reactions Criticality Noted [...] times every day 0 2 Active calcium-vits D0-I-G3-mineral s 166.75 mg- 166.75 unit capsule Take by mouth Active vit S-akrrknr-ygew- rutin-hb196 137-34-47-40 mg tablet Take by mouth Active fish oil-dha-epa 1,200-144-216 mg capsule Take by mouth Activ e ascorbic acid (VITAMIN C) 100 mg tablet Take 1 tablet (100 mg total) by mouth daily Active vitamins A,C,E-zinc-dillan er (ICAPS) 14,320-226-200 cgja-bo-vqye capsule Take by mouth Active biotin 1 [...] disorder 06/02/2018 Asymmetric SNHL (sensorineural hearing loss) Encounters Date Type Department Care Team Description 11/25/2024 8:00 AM CDT Procedure visit [facility] Otolaryngology [address] [place] [address] [address] [place] [address] [place] [address] Radha Chapman Au.D. Asymmetric SNHL (sensorineural hearing loss) (Primary Dx) 11/11/2024 8:00 AM CDT Procedure visit [facility] Otolaryngology [address] [place] [address] 11th [place] [address] [place] [address] Radha Chapman Au.D. Asymmetric SNHL (sensorineural hearing loss) 10/14/2024 3:00 PM CDT - 10/14/2024 11:59 PM CDT Hospital Encounter [facility] [address] [place] [address] Screening mammogram, encounter for Discharge Disposition: Discharge to home or self care from Last 3 Months Immunizations Immunization Administration Dates Next Due Influenza, [...] = 0.6 oz pur e alcohol) Comments No Sex and Gender Information Value Date Recorded Sex Assigned at Not on file Legal Sex Female 6:43 PM DICTAPHONE TYPIST Gender Identity Female 07/02/2019 3:53 PM DICTAPHONE TYPIST Sexual Orientation Not on file Obstetrics History [...] 6:29 PM CDT Height 165.1 cm (5' 5) 03/10/2024 6:29 PM CDT Body Mass Index [...] 2024 03/19/2022, 09/02/2021, 02/16/2021, Additional history exists Influenza Vaccine (#1) 2025 , 04/06/2023, 03/19/2022, Additional history exists Breast Cancer Screening-Mammogram 10/14/2025 10/14/2024, 02/03/2024, 02/04/2023, Additional history exists DTaP/Tdap/Td Vaccine (2 - Td or Tdap) 02/25/2028 02/24/2018 Zoster Vaccine Completed 01/10/2022, 01/18, 02/24/2018, Additional history exists Cervical Cancer Screening Discontinued 2023, 12/04/2023, 11/22/2022, Additional history exists Procedures Procedure Name Priority Date/Time Associated Diagnosis Comments AUDBASE RESULTS 11/11/2024 7:59 AM CDT SCREENING MAMMOGRAM BILATERAL W ESTEVAN Schedule Routine, Read Routine (OP Routine) 10/14/2024 3:18 PM CDT Screening mammogram, encounter for HIGH RISK HPV DNA DETECTION WITH GENOTYPING Routine 12/04/2023 7:35 PM CDT Symptomatic menopausal or female climacteric states from Last 3 Months or Most Recently Relevant to Health Maintenance Results * AudBase Results (11/11/2024 7:59 AM CDT) Provider Scanning AUDIOLOGY SERVICES ORDERABLES Final Result * Screening Mammogram Bilateral W Estevan (10/14/2024 3:18 PM CDT) Anatomical Region Laterality Modality Breast Bilateral Mammography Narrative 10/15/2024 4:41 PM CDT Mammogram Technique: Bilateral Digital Breast Tomosynthesis, Bilateral C-view 2D Screening mammogram. Views obtained: bilateral craniocaudal and bilateral mediolateral oblique. Computer Aided Detection was performed. Mammogram Findings: The present examination has been compared to prior imaging studies performed at [facility] on 11/15/2014, 12/29/2019 and 01/20/2021, at [facility] on 11/17/2015, 11/27/2016, 11/28/2017, 12/05/2018, 01/31/2022 and 02/04/2023, and at [place], [place] on 02/03/2024. There are scattered areas of fibroglandular density. There is no suspicious abnormality in either breast. There are no significant changes from the prior study. Impression: There is no mammographic evidence of malignancy. Annual screening mammography is recommended. OVERALL FINAL ASSESSMENT: BI-RADS CATEGORY 1: Negative. Procedure Note Merline Sahu MD - 10/15/2024 Mammogram Technique: Bilateral Digital Breast Tomosynthesis, Bilateral C-view 2D Screening mammogram. Views obtained: bilateral craniocaudal and bilateral mediolateral oblique. Computer Aided Detection was performed. Mammogram Findings: The present examination has been compared to prior imaging studies performed at [facility] on 11/15/2014, 12/29/2019 and 01/20/2021, at [facility] at [facility] on 11/17/2015, 11/27/2016, 11/28/2017, 12/05/2018, 01/31/2022 and 02/04/2023, and at [place], [place] on 02/03/2024. There are scattered areas of fibroglandular density. There is no suspicious abnormality in either breast. There are no significant changes from the prior study. Impression: There is no mammographic evidence of malignancy. Annual screening mammography is recommended. OVERALL FINAL ASSESSMENT: BI-RADS CATEGORY 1: Negative. us Self Screening Mammogram IMG MAMMO PROCEDURES Fi nal Result * High Risk HPV DNA Detection with Genotyping (Molecular component) (12/04/2023 7:35 PM CDT) HPV HR 16 Not Detected Not Detected HPV HR 18 Not Detected Not Detected [facility] HPV HR Non 16/18 Not Detected Not Detected [facility] Comment: Interpretive Data Nucleic acid amplification for [...] this test have been verified by the [facility]. Correlate with separately reported cytology results, as applicable. Interpretive data last revised 22 Endocervical 12/04/2023 7:35 PM CDT 12/04/2023 7:35 PM CDT Narrative [facility] - 12/06/2023 9:53 PM CDT Clinical history and diagnosis->routine Number of vials->1 Testing type->Screening Last menstrual period (date if known)->years Menstrual status->Postmenopausal Mary Anne Soria MD LAB BODY FLUIDS AND STOOLS ORDERABLES Final Result [facility] [address] [place] [address] from Last 3 Months or Most Recently Relevant to Health Maintenance Insurance [facility] [facility] MEDIC[facility] MEDICARE [facility] MEDICARE Care Teams Contact Lens Blocker Relationship Specialty Start Date End Date Hank Francisco MD [address] [place] [address] PCP - General 03/03/19 Hank Francisco MD [address] [place] [address] 03/03/19
--- OUTSIDE RECORDS SUMMARY | 2024-12-23 08:24 | XMS_ITS | Continuity of Care Document ---
Author Organization [facility] Address [address] [place] [address] [address] [place] [address] Phone Care Team Providers Care Sfdc Developer Name Role Phone Elle Burt Unavailable Unavailable Advance Directives Directive Yes / No Effective Date File Name No Information Encounters Encounter Description Practice Location Reason(s) For Visit Diagnoses Date Provider Providers Copied on Encounter [facility], [id number] [place] [address] [address], [place], [place], [id number], [place] tel:[phone] [facility] [place] No Information [address]. [address] , [address], [place], [address], [place]. tel:[phone] Family History Family Member Type Diagnosis Age At Onset No Information Payers Payer name Insurance type Covered alliance party ID Authoriza tion(s) No Information Social History Type Description Quantity Date Captured Comments Sex Female Smoking Status No Information Chief Complaint And Reason For Visit No Information Reason For Referral Reason For Referral No Information History Of Present Illness Encounter Date Complaint History Of Prese nt Illness No Information Functional Status Date Functional Assessmen t No Information Instructions Date Instruction Additional Infor mation No Information Assessments Type Assessment Date No Information Patient Care Teams Name Effective Dates (start - stop) Status Members No Information
--- OUTSIDE RECORDS SUMMARY | 2024-12-23 08:24 | XMS_ITS | Encounter Summary ---
Author Organization [email or web address] Address [address] [place] [address] Care Team Providers Care Clinical Lab Technologist Name Role Phone Hank Francisco MD Primary Care Provider + Encounter Details Date Type Department Care Team (Late st Contact Info) Description 12/23/2024 External Device Data [facility] ABSTRACTION Provider, Abstract NO ADDRESS ON FILE Social History Tobacco Use Types Packs/Day Years [...] PM CDT Sexual Orientation Not on file documented as of this encounter Plan of Treatment Not on file documented as of this encounter Visit Diagnoses Not on filedocumented in this encounter Care Teams Clinical Lab Technologist Relationship Specialty Start Date End Date Hank Francisco MD PCP - General Internal Medicine 11/01/14 documented as of this encounter
--- OUTSIDE RECORDS SUMMARY | 2024-12-23 08:24 | XMS_ITS | Clinical Summary ---
Author Organization [facility] Address [address] [place] [address] Care Team Providers Care Necktie Operator Pockets And Pieces Name Role Phone Hank Francisco MD Primary [...] Encounters Date Type Department Care Team Description 12/23/2024 External Device Data [facility] ABSTRACTION Provider, Abstract 12/22/2024 External Device Data [facility] ABSTRACTION Provider, Abstract 12/02/2024 External Device Data [facility] ABSTRACTION Provider, Abstract 12/02/2024 External Device Data [facility] ABSTRACTION Provider, Abstract 12/01/2024 External Device Data [facility] ABSTRACTION Provider, Abstract 11/10/2024 External Device Data [facility] ABSTRACTION Provider, Abstract 10/13/2024 External Device Data [facility] ABSTRACTION Provider, Abstract 10/06/2024 External Device Data [facility] ABSTRACTION Provider, Abstract [...] 8:12 AM CDT Height 165.1 cm (5' 5) 11/26/2019 8:12 AM CDT Body Mass Index 33.78 11/26/2019 8:12 AM CDT Plan of Treatment Health Maintenance Due Date Last Done Comments Pre-Diabetes and Diabetes Screening 1955 FIT-DNA Q 3 years 2002 FIT/FOBT Q 1 year 2002 Flex Sig/CT Colonography Q 5 years 2002 PNEUMOCOCCAL VACCINE 50+ YEA RS (2 of 2 - PCV) 04/09/2015 04/09/2014 OSTEOPOROSIS SCREENING 2022 BREAST CANCER SCREENING 02/05/2024 02/05/20 23, 02/04/2023, 01/31/2022, Additional history exists INFLUENZA VACCINE (#1) 2024 9, 04/01/2015, 03/12/2014 COLORECTAL SCREENING 11/25/2026 11/26/2019, 11/26/2019, 11/26/2019, Additional [...] Gonzales MD - 11/26/2019 9:09 AM CDT [facility] Patient Name: Jasmine Holloway Procedure Date: [...] Addenda: 0 Procedure Date: 11/26/2019 8:29:18 AM [address] [address] Saleem Gonzales MD GI PROCEDURE ORDERABLES Final Re sult from Last 3 Months or Most Recently Relevant to Health Maintenance Insurance [employer] [facility] Address: [facility] [id number] [place] [address] Advance Directives For more information, please contact: [phone] * Full Code (Latest Code Status on File) Date Activated Date Inactivated Comments 11/26/2019 8:13 AM 11/26/2019 11:59 AM * Full Code Date Activated Date Inactivated Comments 11/18/2014 7:43 AM 11/18/2014 11:17 AM Care Teams Necktie Operator Pockets And Pieces Relationship Specialty Start Date End Date Hank Francisco MD PCP - General Internal Medicine 11/01/14
--- OUTSIDE RECORDS SUMMARY | 2024-12-23 08:24 | XMS_ITS | Encounter Summary ---
Author Organization [employer] Address [address] [place] [address] Care Team Providers Care Survey Party Chief Name Role Phone Hank Francisco MD Primary Care Provider + Encounter Details Date Type Department Care Team (Late st Contact Info) Description 12/22/2024 External Device Data [facility] ABSTRACTION Provider, [...] on filedocumented in this encounter Care Teams Survey Party Chief Relationship Specialty Start Date End Date Hank Francisco MD PCP - General Internal Medicine 11/01/14 documented as of this encounter
[2024-12-23 08:41] LABS: Add Urine Microscopic? YES; Appearance Urine Clear (Clear); Glucose Urine UA Negative (Negative); Leukocyte Esterase Ur 2+ LEU/UL (Negative); Nitrate Urine Negative (Negative); Non Pathogenic Casts 0-2; Specific Grav Ur 1.021 (1.001-1.035)
[2024-12-23 09:10] LABS: Alanine Aminotransferase 14 U/L (6-35); Albumin Level 4.2 g/dL (3.5-5.1); Alkaline Phosphatase 65 U/L (38-126); Anion Gap 6 mmol/L (4-12); Aspartate Amino Transferase 25 U/L (14-36); Bilirubin,Total 0.5 mg/dL (0.2-1.3); Blood Urea Nitrogen 9 mg/dL (7-17); Calcium 9.6 mg/dL (8.4-10.2); Carbon Dioxide 27 mmol/L (22-30); Chloride 108 mmol/L (98-107); Cholesterol 202 mg/dL (0-200); Estimated Glomerular Filt Rate > 60; Glucose 101 mg/dL (65-110); HDL Direct 76 mg/dL; Potassium 4.7 mmol/L (3.4-5.0); Sodium 141 mmol/L (137-145); Total Protein 7.5 g/dL (6.3-8.2); Triglycerides 102 mg/dL (<150)
[2024-12-23 09:46] LABS: Thyroid Stimulating Hormone 2.010 uIU/mL (0.465-4.680)
[2024-12-23 10:30] LABS: Free T4 Free Thyroxine 1.09 ng/dL (0.78-2.19); Hemoglobin A1C 5.3 % (<5.7)
== END 2024-12-23 08:20 | disposition home or self-care (01) ==
LOC: ANHLAB 08:19
PROVIDERS: PCP Internal Medicine; Visit Provider Internal Medicine
DX: E55.9 Vitamin D deficiency, unspecified (principal); R73.01 Impaired fasting glucose; E78.2 Mixed hyperlipidemia; Z13.29 Encounter for screening for other suspected endocrine disorder; Z79.899 Other long term (current) drug therapy
CPT/HCPCS: 36415; 80053; 80061; 81001; 82306; 83036; 84439; 84443; 87086